=== PATIENT | female | born 1995 | race Caucasian/White ===

== ENCOUNTER 2022-11-05 16:09 | Outpatient (CLI) | payer BC, SELFPAY ==
[2022-11-05 20:33] LABS: Chlamydia DNA Amplified* NOT DETECTED (No Detected); GC DNA Amplified* NOT DETECTED (No Detected)
== END 2022-11-05 16:10 | disposition home or self-care (01) ==
LOC: NFLDREF 16:10
PROVIDERS: Visit Provider Obstetrics & Gynecology
DX: Z01.419 Encounter for gynecological examination (general) (routine) without abnormal findings (principal); Z11.3 Encounter for screening for infections with a predominantly sexual mode of transmission
CPT/HCPCS: 87491; 87591

== ENCOUNTER 2022-12-06 13:19 | Outpatient (CLI) | payer BC, SELFPAY | END 2022-12-06 13:20 | disposition home or self-care (01) | PROVIDERS: Visit Provider Physician Assistant | DX: Z11.3 Encounter for screening for infections with a predominantly sexual mode of transmission (principal) | CPT/HCPCS: 86592; 86703; 86706; 86803; 87340 ==

== ENCOUNTER 2022-12-09 08:01 | Outpatient (CLI) | payer BC, SELFPAY | END 2022-12-09 08:02 | disposition home or self-care (01) | LOC: NFLDREF 12-10 02:56 | PROVIDERS: Visit Provider Obstetrics & Gynecology | DX: Z00.00 Encounter for general adult medical examination without abnormal findings (principal); Z13.6 Encounter for screening for cardiovascular disorders | CPT/HCPCS: 80061 ==

== ENCOUNTER 2023-08-20 19:51 | Outpatient (CLI) | payer BC, SELFPAY ==
--- NOTE | 2023-09-02 12:34 | W.PM.SLEEP ---
Sleep Study Details Details Interpreting Provider: Norman Date of Sleep Study: 08/20/23 Sleep Study Details: STUDY TYPE:? Home unattended ? BMI:? 25.2 ORDERING PROVIDER:Michelle Austin INDICATION:? Concerns about sleep apnea ? SLEEP SUMMARY:? 641 minutes monitor RESPIRATORY SUMMARY:? AHI 1.5 with minimal positional variation Low oxygen 91 No snoring observed PERIODIC LIMB MOVEMENTS OF SLEEP:? Not recorded during home study CARDIAC:? Range 50-109, mean 65.5 IMPRESSION:? This overall sleep study is within normal limits. If sleep disorder is strongly suspected an in-lab study would be indicated possibly followed by multiple sleep latency test. RECOMMENDATION: []
== END 2023-08-20 19:52 | disposition home or self-care (01) ==
LOC: SLEEP 19:52
PROVIDERS: Visit Provider Otolaryngology
DX: G47.19 Other hypersomnia (principal)
CPT/HCPCS: 95806

== ENCOUNTER 2023-10-10 09:18 | Outpatient (CLI) | payer BC, SELFPAY ==
[2023-10-10 15:58] LABS: Chlamydia DNA Amplified* NOT DETECTED (No Detected); GC DNA Amplified* NOT DETECTED (No Detected)
== END 2023-10-10 09:19 | disposition home or self-care (01) ==
PROVIDERS: PCP Physician Assistant; Visit Provider Physician Assistant
DX: N92.3 Ovulation bleeding (principal); Z11.3 Encounter for screening for infections with a predominantly sexual mode of transmission
CPT/HCPCS: 84443; 87491; 87591

== ENCOUNTER 2024-06-16 11:21 | Outpatient (CLI) | payer BC, SELFPAY ==
--- NOTE | 2024-06-16 11:15 | CRLHL7_ITS ---
For Patients: As a result of the Cures Act, medical imaging exams and procedure reports are released immediately into your electronic medical record. You may view this report before your referring provider. If you have questions, please contact your health care provider. BILATERAL BREAST ULTRASOUND CLINICAL HISTORY: BILATERAL breast lumps. COMPARISON: None. TECHNIQUE: Real-time ultrasound imaging of BILATERAL breasts with imaging documentation. FINDINGS: Targeted sonogram RIGHT breast 10 o`clock 8 cm from the nipple and targeted sonogram LEFT breast 2 o`clock 4 cm from the nipple performed. Normal dense tissue is present BILATERALLY. No abnormal vascularity. No fluid collection or mass. No fibrocystic change. IMPRESSION: Normal dense tissue BILATERALLY. No suspicious findings. RECOMMENDATIONS: Clinical follow-up and age-appropriate screening mammography. Results and recommendations were discussed with the patient at the time of the exam. BI-RADS Category 2: Benign A lay language report of this examination will be provided to the patient. Dictated by Bethel Mann MD @ 06/17/2024 12:52:09 PM /sp SP/Dictated by: Bethel Mann MD @ 06/17/2024 12:52:00 PM (Electronically Signed)
== END 2024-06-16 11:22 | disposition home or self-care (01) ==
LOC: US 11:22
PROVIDERS: Visit Provider Obstetrics & Gynecology
DX: N63.10 Unspecified lump in the right breast, unspecified quadrant (principal); N63.20 Unspecified lump in the left breast, unspecified quadrant
CPT/HCPCS: 76642

== ENCOUNTER 2024-08-05 09:51 | Outpatient (CLI) | payer BC, SELFPAY | END 2024-08-05 09:52 | disposition home or self-care (01) | LOC: NFLDREF 08-08 12:52 | PROVIDERS: Visit Provider Emergency Medicine | DX: Z00.00 Encounter for general adult medical examination without abnormal findings (principal); Z13.1 Encounter for screening for diabetes mellitus; Z13.6 Encounter for screening for cardiovascular disorders | CPT/HCPCS: 80061; 82947 ==

== ENCOUNTER 2024-11-29 15:45 | Outpatient (CLI) | payer BC, SELFPAY ==
--- NOTE | 2024-11-29 15:45 | CRLHL7_ITS ---
For Patients: As a result of the Century Cures Act, medical imaging exams and procedure reports are released immediately into your electronic medical record. You may view this report before your referring provider. If you have questions, please contact your health care provider. CLINICAL HISTORY: dysmenorrhea TECHNIQUE: 2D silva scale ultrasound. In addition color Doppler and spectral Doppler analysis was performed of the pelvis using a transabdominal approach. Patient declined transvaginal imaging. FINDINGS: On transabdominal imaging, the myometrium has a normal uniform echotexture. The uterus measures 9.1 x 3.5 x 4.6 cm. The endometrial lining appears normal and measures 6.1 mm in thickness. The right ovary measures 4.2 x 2.2 x 2.3 cm in size and the left ovary measures 3.3 x 1.8 x 3.1 cm. The ovaries demonstrate normal arterial and venous blood flow on color Doppler and spectral Doppler analysis. There are no suspicious fluid collections within the cul-de-sac. IMPRESSION: Normal pelvic ultrasound. Dictated by Bethel Mann MD @ 11/29/2024 9:32:26 PM (Electronically Signed)
== END 2024-11-29 15:46 | disposition home or self-care (01) ==
LOC: US 15:46
PROVIDERS: PCP Emergency Medicine; Visit Provider Emergency Medicine
DX: N94.6 Dysmenorrhea, unspecified (principal)
CPT/HCPCS: 76856; 93976